=== PATIENT | female | born 1995 | race African-American/Black ===

== ENCOUNTER 2022-11-05 21:58 | Emergency (ER) | payer MEDICAID ==
[~2022-11-05] VITALS: Ht 185.4 cm; Wt 72.0 kg
[2022-11-05 22:00] VITALS: BP 135/71; PULSE 79; RESP 16; TEMP 98.2; O2SAT 99
[2022-11-05] MEDS ORDERED: SODIUM CHLORIDE 0.9% 1,000 ML IV ONE (22:15)
[2022-11-05] MEDS ORDERED: ONDANSETRON HCL 4MG/2ML INJ IV ONE (22:15)
[2022-11-05 22:42] LABS: BASOPHILS % 0.3 % (0.0-2.0); EOSINOPHILS % 0.6 % (0.0-5.0); HEMATOCRIT. 31.1 % (36.0-48.0); HEMOGLOBIN. 9.8 g/dL (12.0-16.0); LYMPHOCYTES % 12.5 % (20.0-50.0); MEAN CORPUSCULAR HEMOGLOBIN 23.8 pg (28.0-32.0); MEAN PLATELET VOLUME 7.1 fl (7.4-10.4); NEUTROPHILS % 75.6 % (40.0-76.0); PLATELET 420 x1000/uL (130-400); RED CELL DISTRIBUTION WIDTH 18.9 % (11.6-14.6)
[2022-11-05 22:49] LABS: *AMPHETAMINES SCREEN URINE NEGATIVE (NEGATIVE); *BARBITURATES SCREEN URINE NEGATIVE (NEGATIVE); *BENZODIAZEPINES SCREEN URINE NEGATIVE (NEGATIVE); *COCAINE SCREEN URINE NEGATIVE (NEGATIVE); CANNABINOID URINE SCREEN NEGATIVE (NEGATIVE); METHADONE URINE SCREEN NEGATIVE (NEGATIVE); PHENCYCLIDINE URINE SCREEN NEGATIVE (NEGATIVE)
[2022-11-05 22:50] LABS: CHLORIDE 105 mEq/L (98-107)
[2022-11-05 22:51] LABS: OPIATES URINE SCREEN PRESUMTIVE POSITIVE (NEGATIVE)
[2022-11-05 22:58] LABS: HCG SCREEN NEGATIVE
[2022-11-05 23:00] LABS: ETHANOL BLOOD < 10 mg/dL (-10)
[2022-11-05] MEDS ORDERED: MAGNESIUM 2 G PREMIX 50 ML IV ONE (23:15)
[2022-11-05] MEDS ORDERED: POTASSIUM CHLORIDE 20MEQ TABLET SR PO ONE (23:15)
[2022-11-05] MEDS ORDERED: KCL 20MEQ/100ML PREMIX 100 ML IV ONE (23:30)
== END 2022-11-06 | disposition left against medical advice (07) ==
LOC: ER 22:40
DX: E83.42 Hypomagnesemia (principal)
CPT/HCPCS: 80053; 80305; 80320; 82962; 84703; 83880; 83735; 85025; 84484; 36415; 71045; 70450; 93005; 96361; 96374; 99285; J2405; J7030; G0480